=== PATIENT | female | born 1995 | race Caucasian/White ===

== ENCOUNTER 2025-07-13 02:21 | Inpatient (IN) | payer OTHER, SELFPAY ==
[2025-07-13] VITALS (20 sets, daily range): BP systolic 95–147; BP diastolic 58–100; PULSE 51–95; RESP 13–16; TEMP 36.4–36.8; O2SAT 95–100; BMI 31.4
--- NOTE | 2025-07-13 02:31 | P.OBHP_ITS ---
OB - H&P: HPI Labor/Induction History of Present Illness Time Seen by Provider: 02:31 Date Seen: 07/13/25 Chief Complaint: The patient is a 29 year old 3 para 2 at 35.6 weeks gestation who presents grossly ruptured. Chief complaint: Maternity : 3 Para: 2 Narrative: Natalya Cao is a 29 year old female who has breech di-di twins who presents with gross rupture of membranes. She is visiting family in [place], follows at [facility]. I do not have any records. Per patient's report, patient has twin di-di breech boys, bicornuate uterus. Has had 2 prior c-sections. She grossly ruptured at 1240. Has been felicia off and on for weeks. Things have been more painful since rupture of membranes. She reports she has had uncomplicated other than twin . 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 [place]ame [place] care after finding out about twins. Had some care in [place], most recent care at [facility]. She has planned for Friday at [facility]. We have requested records be faxed [facility]. She reports she is healthy. Only meds in this are vitamin and asa. She has no allergies. She has had 2 c-sections, no other abdominal surgeries. Review of Systems Status of ROS: Reports: 10 or more systems reviewed and unremarkable except as noted in History and below Meds Home Medications and Allergies Home Medications ?Medication ?Instructions ?Recorded ?Confirmed ?Type aspirin 81 mg tablet 81 mg PO DAILY 07/13/2506/21 History vit no.95-ferrous 1 tab PO DAILY 07/13/25 History fumarate 28 mg-folic acid 800 mcg tablet () Allergies Allergy/AdvReac Type Severity Reaction Status Date / Time No Known Drug Allergies Allergy Verified 07/13/25 02:06 OB - H&P: Exam Constitutional: Constitutional: no acute distress Routine HEENT Exam: Head: Present atraumatic and normal inspection Routine Neck Exam: Neck: Present full ROM Routine Respiratory Exam: Respiratory: Present CTA bilaterally Routine Cardiovascular Exam: Cardiovascular: RRR, S1 and S2 Detailed Abdominal Exam: Bowel sounds: hypoactive Detailed Labor and Delivery Exam: Patient Gravid: yes Fetus A: heart rate baseline: 120 monitor accelerations: 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 variability: Moderate (11-25) Fetus B: heart rate baseline: 130 monitor accelerations: Present monitor decelerations: None MCC variability: Moderate (11-25) Routine Extremities Exam: Extremities: Absent pedal edema or tenderness Routine Skin Exam: Present intact Routine Neurological Exam: Present alert and oriented X3 Routine Psychiatric Exam: Present normal affect OB - Problem Based A/P Additional Plan (1) Twin dichorionic diamniotic placenta: Status: Acute (2) Rupture of membranes with clear amniotic fluid: Status: Acute (3) Bicornuate uterus: Status: Acute (4) History of : Status: Acute Plan - I have consulted Dr. Baig with [facility] for management. - I have consulted [facility] for care for peds, I will also plan to attend. But given 35 weeks +breech +no records, appreciate her coming in for care as well. - will place IV, ready team for delivery.
[2025-07-13 02:34] LABS: Amnisure Rom* POSITIVE
[2025-07-13] MEDS: LACTATED RINGERS 1000 ML 1,000 ML 1200 ML IV (02:40)
[2025-07-13] MEDS: AZITHROMYCIN 500 MG in 0.9 % SODIUM CHLORIDE 250 ml 250 ML 255 MG IVPB (02:43)
[2025-07-13 03:00] LABS: Hematocrit* 39.7 % (33.0-51.0); Hemoglobin* 13.8 gm/dL (12.0-16.0); Immature Granulocytes Pct Auto 1.5 %; Mean Corpuscular HGB Conc 35 gm/dL (32-36); Mean Corpuscular Hemoglobin 31 pg (26-34); Mean Corpuscular Volume 89 fL (80-100); RDW Coefficient of Variation % 16.0 % (11.5-15.5); Red Blood Count* 4.45 m/uL (4.00-5.20); White Blood Count* 11.30 K/uL (4.50-11.00)
[2025-07-13 03:05] LABS: Immature Granulocytes Abs Auto 0.20 K/uL (0.00-0.30); Lymphocytes Absolute Auto 1.10 K/uL (0.90-2.90)
[2025-07-13 03:06] LABS: Slide Review Reflex No
[2025-07-13] MEDS: LACTATED RINGERS 1000 ML 1,000 ML 125 ML IV (05:42)
--- NOTE | 2025-07-13 06:13 | SUR.OPER ---
per surgeon labeling placenta as placentas
--- NOTE | 2025-07-13 06:30 | P.OBPRC_ITS ---
Procedure Date of procedure: 07/13/25 Pre-op diagnosis: PPROM at 35 weeks, 6 days gestation Dichorionic, diamniotic twin ; breech presentation for both twins Two previous sections Bicornuate uterus Post-op diagnosis: same Procedure Done: Global Will [facility] bill your pro fee for this procedure?: Yes Blood Loss Measurement Type: QBL (3114) Bakri Used: No IV fluids (mL): 1,600 Urine Output (mL): 300 Surgeon: Alexus Baig MD Findings: 1. Male infants, both in breech presentation. 2. Baby A: Apgars 8 & 9, weight 2340 g. 3. Baby B: Apgars 7 & 9, weight 2815 g. 4. Peritoneum obliterated between anterior abdominal wall and uterus up to the level of the fundus. Thus, anterior leaf of broad ligament was nonexistent bilaterally. Left round ligament partially disrupted by entry into peritoneal cavity, and posterior leaf of left broad ligament disrupted between the left tube and ovary. 5. Normal appearance of bilateral tubes and ovaries. Procedure Name: Repeat delivery with lysis of adhesions Procedure Description: Consent: We discussed the indications for in her case. We discussed the risks of , including bleeding/hemorrhage, infection, damage to internal organs including bladder, risk of scarring, risk of placenta accreta in future pregnancies, and thromboembolism. We discussed likely postoperative restrictions and precautions. Consent form was reviewed with and signed by patient. PROCEDURE IN DETAIL: Patient was taken to the operating room with IV running. She received cefazolin and azithromycin in preoperative prophylaxis. Spinal anesthesia was administered. Vogel catheter was inserted. She was prepped and draped in the usual sterile fashion. Anesthesia was tested and found to be adequate. A low-transverse skin incision was made with a scalpel overlying the previous Pfannenstiel scar. This was carried through to the underlying layer of fascia with the scalpel. The subcutaneous fat was dissected off the underlying fascia with Bovie. The fascia was nicked in the midline with a scalpel, and this incision was extended laterally with scissors. The rectus fascia was dissected off the underlying rectus muscles sharply in superior and inferior directions. The rectus muscles were in the midline. The denuded uterine musculature was encountered, but I was unable initially to gain entry into the peritoneal cavity. I was slowly able to create an opening in the peritoneal adhesions 1st with blunt dissection, and then by passing my left hand a small opening and bringing the peritoneum down words towards the incision, and then lysing this peritoneum with Bovie. Ultimately this was successful in gaining access to the fundus. Joe O retractor was inserted and tightened down, providing excellent visualization of the lower uterine segment. The bladder reflection was found to be well below the planned site for hysterotomy. Low-transverse uterine incision was made with a scalpel. Incision was widened bluntly. The bag of water of twin A was ruptured in the process. The breech of twin A was grasped through the hysterotomy, sacrum was turned anterior, and gentle traction was applied at the hips, easily delivering the remainder of the body and the 's head while maintaining a flexed position. Cord was clamped and cut after approximately 30 seconds. was handed off to attending pediatrics providers. The bag of water of twin B was then ruptured. The breech of twin B was grasped through the hysterotomy, sacrum was turned anterior, and gentle traction was applied at the hips, easily delivering the remainder of the body and arms. Fundal pressure was required for delivery of the head, whilst maintaining the head in a neutral position. Cord was clamped and cut after approximately 30 seconds. was handed off to attending pediatrics providers. The placenta was delivered with gentle traction on the cord. The uterus was exteriorized. The endometrial cavity was manually explored, revealing a muscular septum running down the superior 1/3 to 1/2 of the endometrial cavity. The right side of the uterus was more distended. There was abundant bleeding of a branch of the right uterine artery at the angle of the hysterotomy. This was immediately addressed with multiple egnuyr-if-atolq sutures. Thereafter, the hysterotomy was reapproximated with 0 Vicryl in a running, locked fashion. Several cuwtis-xx-kaenk sutures were required at various sites along the hysterotomy to obtain hemostasis. The adnexa were examined and noted to be normal in appearance. There was bleeding from the posterior fundal uterus through the rent in the posterior leaf of the left broad ligament. This was addressed with several sutures of 2-O Vicryl. Maricarmen was applied to the base. The tear in the left round ligament was addressed with several sutures, some interrupted and some running, of 2-0 Vicryl. The entire anterior surface of the uterus was without peritoneum and was raw and bleeding at several sites. These were variably addressed with Bovie and chromic suture. The uterus was returned to the abdomen. All raw and previously bleeding areas were examined multiple times. Additional yxamle-mu-xcnue sutures were used at various sites. Maricarmen was applied adjacent to the partially disrupted left round ligament. The cul-de-sac and gutters were cleansed with dampened laparotomy sponge, removing any further clots and debris. The Joe O retractor was removed. The hysterotomy was reexamined and additional rhwvud-bw-qwgav sutures were used for hemostasis. The rectus muscles were examined and found to be hemostatic. The fascia was reapproximated with 0 Vicryl in a running fashion. Subcutaneous fat was irrigated and Bovie used on oozing vessels. The subcutaneous fat was reapproximated with 2 0 plain gut suture in an interrupted fashion. The skin was closed with a subcuticular stitch of 4-0 Monocryl. Surgical glue was applied above this. Patient tolerated procedure well was taken to recovery area in stable condition. Complications: Partial disruption of left broad ligament Intrapartum hemorrhage 1344 mL, partially from bleeding of right uterine artery and partially from that of left round ligament Pathology: specimen obtained, sent to pathology (Placentas) Surgery Debrief Performed: Yes Surgery Debrief Comment: Postoperative debrief was verbalized with OR staff, including a verification of pathology specimens to be sent as described above. Condition: stable Disposition: floor Globe total score - 1 minute: 8 total score - 5 minute: 9
--- NOTE | 2025-07-13 07:03 | W.PM.NB ---
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 Images saved: Yes Medications given in 5ml increments after negative aspiration: Marcaine %: 0.25 mL: 30 Needle gauge: 20 and Exparel mL: 10 Needle gauge: 20 Patient tolerated procedure well: Yes Block Charges Block Charge (with Pro Fee): TAP Bilateral Use of Ultrasound Machine for Block: Yes- US Guidance/pain block
--- NOTE | 2025-07-13 07:05 | P.ANES_ITS ---
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
--- NOTE | 2025-07-13 07:05 | W.ANESCHARGE ---
Anesthesia Charges Start Date/Time Anesthesia Start Date: 07/13/25 Anesthesia Start Time: 03:49 Stop Date/Time Anesthesia Stop Date: 07/13/25 Anesthesia Stop Time: 06:40 Summary Emergency: MAXILLOFACIAL PROSTHODONTIST Coding CPT Codes CPT Codes: ANESTH CS DELIVERY - 95802 ([id number]) P2 - PATIENT W/MILD SYST DISEASE, QZ - MAXILLOFACIAL PROSTHODONTIST SVC W/O SPACE SCHEDULER BY Additional Codes: Summary - Emergency: MAXILLOFACIAL PROSTHODONTIST ([id number])
[2025-07-13] MEDS: ACETAMINOPHEN 500 MG TABLET 1000 MG PO ×3 (07:47→20:36)
[2025-07-13] MEDS: FERROUS SULFATE 325 MG TABLET PO (10:00)
[2025-07-13 11:21] LABS: Hematocrit* 33.8 % (33.0-51.0); Hemoglobin* 11.3 gm/dL (12.0-16.0); Immature Granulocytes Pct Auto 1.5 %; Mean Corpuscular HGB Conc 33 gm/dL (32-36); Mean Corpuscular Hemoglobin 30 pg (26-34); Mean Corpuscular Volume 91 fL (80-100); RDW Coefficient of Variation % 16.3 % (11.5-15.5); Red Blood Count* 3.72 m/uL (4.00-5.20); White Blood Count* 19.08 K/uL (4.50-11.00)
[2025-07-13 11:31] LABS: Immature Granulocytes Abs Auto 0.30 K/uL (0.00-0.30); Lymphocytes Absolute Auto 1.00 K/uL (0.90-2.90); Slide Review Reflex No
[2025-07-14 00:20] VITALS: BP 96/62; PULSE 85; RESP 16; TEMP 36.7; O2SAT 95
[2025-07-14 06:21] VITALS: BP 97/60; PULSE 86; RESP 16; TEMP 36.7; O2SAT 95
[2025-07-14] MEDS: SIMETHICONE 80 MG TAB.CHEW PO ×3 (06:25→20:04)
[2025-07-14 07:12] LABS: Hemoglobin* 9.0 gm/dL (12.0-16.0)
[2025-07-14] MEDS: ACETAMINOPHEN 500 MG TABLET 1000 MG PO ×2 (09:22→16:11)
[2025-07-14] MEDS: DOCUSATE SODIUM 100 MG CAPSULE PO (09:23)
[2025-07-14 09:26] VITALS: BP 105/67; PULSE 79; RESP 16; TEMP 36.6; O2SAT 95
--- NOTE | 2025-07-14 09:41 | PM.OBPNVD1 ---
OB - PN:Subj Subjective Time Seen by Provider: 09:42 Date Seen: 07/14/25 Narrative: Natalya is a 29yo seen on POD1 from repeat C/S. was complicated by dichorionic diamniotic twin gestation, bicornuate uterus, prior C/S x2. Her surgery was complicated by a hemorrhage (1,344mL), secondary to mild atony and primarily tissue trauma due to significant intra-abdominal adhesions. Postoperatively, she has been feeling well. Patient notes her pain is well controlled on ibuprofen, Tylenol and oxycodone (one 5 mg dose overnight). She is tolerating p.o. intake without nausea or vomiting. Voiding spontaneously, robust urine output noted - 2150cc documented since surgery and now no longer recording strict I/Os. Patient has been up to ambulate several times - denies dizziness, lightheadedness, chest pain or dyspnea. Lochia is described as moderate, no concerns. Passing flatus, no bowel movement. She is breast feeding her babies, Carrington and Jet. They were able to discontinue IV support this morning. The family is bonding appropriately. OB - PN: Obj Exam Physical Exam: Vital signs: Temp Pulse Resp BP Pulse Ox O2 Del Method 98 F 79 16 105/67 95 Room Air 07/14/25 09:26 07/14/25 09:26 07/14/25 09:26 07/14/25 09:26 07/14/25 09:26 07/14/25 09:26 Narrative: General: Alert and oriented, in no acute distress Psych: Appropriate mood and affect Abdomen: Soft, moderate distension that is easily compressible and sounds like gaseous tympany on percussion. Bowel sounds present. No upper abdominal tenderness, there is moderate tenderness to palpation at the fundus and bilateral lower quadrants consistent with postoperative state. No rebound or guarding. Fundus palpates at umbilicus, firm. Incision is covered, clean/dry. Patient is aware this can be removed at any time. No surrounding erythema or ecchymosis. Extremities: No significant edema. Calves are without erythema or tenderness. A.m. hemoglobin is 9.0 from her 4 hour postop value of 11.3. OB - PN: Obj Data Labs Labs: Laboratory Results - last 24 hr 07/13/25 07/14/25 11:13 06:45 WBC 19.08 H RBC 3.72 L Hgb 11.3 L 9.0 L Hct 33.8 MCV 91 MCH 30 MCHC 33 RDW Coeff of Christine 16.3 H Plt Count 140 Neut % (Auto) 84.6 H Lymph % (Auto) 5.4 L [place] % (Auto) 8.4 Eos % (Auto) 0.0 Baso % (Auto) 0.1 Neut # (Auto) 16.10 H Lymph # (Auto) 1.00 [place] # (Auto) 1.60 H Eos # (Auto) 0.00 Baso # (Auto) 0.00 Abs Immat Gran (auto) 0.30 Imm/Tot Granulo (auto) 1.5 OB - PN: A/P Delivery Assessment and Plan (1) Twin dichorionic diamniotic placenta: Status: Acute (2) Rupture of membranes with clear amniotic fluid: Status: Acute (3) Bicornuate uterus: Status: Acute (4) History of : Status: Acute Plan Natalya is a 29yo seen on POD1 from repeat C/S. was complicated by dichorionic diamniotic twin gestation, bicornuate uterus, prior C/S x2. Her surgery was complicated by a hemorrhage (1,344mL), secondary to mild atony and primarily tissue trauma due to significant intra-abdominal adhesions. Natalya is meeting all appropriate postoperative milestones. She does have new acute blood loss anemia, hemoglobin of 9.0 from 11.3 4 hours postop. Vital signs within normal limits, adequate urine output, pain is well controlled, overall benign abdominal exam. She is ambulating without dizziness/lightheadedness, no chest pain or dyspnea. Continue oral iron. Patient is successfully her infants, they are doing well and were weaned off IV support this morning. No acute mood concerns. The family is planning to discharge home on postop day 3. They are open to their care either here or at [facility] in [place]. Discussed contraception, where would recommend she utilize something reliable for at least 18 months after delivery due to her significant intra-abdominal adhesions. She notes they have utilize natural family planning in the past, will likely do so again.
[2025-07-14 15:57] VITALS: BP 97/63; PULSE 102; RESP 12; TEMP 36.8; O2SAT 96
[2025-07-14 19:59] VITALS: BP 103/68; PULSE 100; RESP 16; TEMP 36.7; O2SAT 97
[2025-07-15] MEDS: ACETAMINOPHEN 500 MG TABLET 1000 MG PO ×3 (02:17→17:54)
[2025-07-15 05:00] VITALS: BP 100/66; PULSE 72; RESP 16; O2SAT 97
--- NOTE | 2025-07-15 08:06 | P.DS_ITS ---
DS: Providers Provider Date Seen: 07/15/25 Date of admission: 07/13/25 02:21 Primary care physician: Not a Local Provider Admitting Clinician: Nataliia Torres MD Consults: 07/13/25 02:33 Consult to Physician [CONS] Routine Comment: Consulting Provider: Alexus Baig Has provider been notified: Yes Attending Physician on discharge: Juanis Mayfield CNM DS: Diagnosis Discharge Diagnosis (1) care and examination immediately after delivery: Status: Acute (2) History of : Status: Acute (3) Lactating mother: Status: Acute Exam Narrative: Exam Narrative: GENERAL APPEARANCE:? normal affect, alert, no distress MOOD:? appropriate CHEST:? clear to auscultation HEART:? regular rate and rhythm ABDOMEN:? soft, non-tender the uterine fundus is At Umbilicus, Midline and is appropriate for the stage of recovery. EXTREMITIES:? normal and no edema INCISION: Healing well, no surrounding erythema, abnormal induration or discharge Const: Vital Signs, click to edit/add: Vital Signs - 24 hr 07/14/25 09:26 07/14/25 15:57 07/14/25 19:59 Temperature 98 F 98.2 F 98.1 F Pulse Rate [Pulse Oximeter] 79 102 H 100 Respiratory Rate 16 12 16 Blood Pressure [Ri ght Arm] 105/67 97/63 103/68 Pulse Oximetry 95 96 97 Oxygen Delivery Me thod Room Air Room Air Room Air 07/15/25 05:00 Temperature Pulse Rate [Pulse Oximeter] 72 Respiratory Rate 16 Blood Pressure [Ri ght Arm] 100/66 Pulse Oximetry 97 Oxygen Delivery Me thod Room Air Documenting provider has reviewed patient's vital signs: yes OB - DS: Summary Hospital Course Hospital Course: Natalya is a 29 y.o. G 3 P 3 who was admitted to [facility] followed by repeat c/s of twins. ?She had a section that was uncomplicated. The patient feels well. ?The pain is well controlled with current medications. ?She has no new complaints. ?She is breast feeding and reports things are going well, however twins were and they are down in weight. the patient has done well.? Vitals have been stable.? She has remained afebrile.? Has a good appetite, is tolerating a general diet. ?She is voiding without difficulty.? She is passing gas and has [not] had a bowel movement.? She is ambulating and denies any dizziness.? Has small amount of rubra lochia. Problems: Anemia Discharge home. Babies are down about 10% since weight and may be recommended to stay again tonight. If they do, she may elect to stay and d/c home tomorrow. Follow up in 2 weeks and 6 weeks.? , may see if needed? Hgb 9.0. Iron supplement ordered orally every other day?? For pain control of perineum, breast and pelvic pain, take 600 mg Ibuprofen every 6 hours as needed by mouth or 1000 mg acetaminophen (Tylenol) every 6 hours by mouth as needed. You can alternate these so you are taking something every 3 hours as needed. A heating pad can also be used for your abdomen or breasts. You may also take docusate sodium up to twice daily to soften your stools and help to prevent constipation. You may wean off of it when your stools return to normal.? Peripartum Data delivery method: Repeat Section Procedures: Procedures Operation Date: 07/13/25 03:00 Actual Procedure Side Surgeon p Repeat Section Alexus Baig MD complications: none Infant Gender: Male [place] A Infant Gender: Male Infant Discharge Plan: Home (May be recommended to stay again tonight due to weight concerns) [place] B Infant Gender: Male Discharge Plan: Home (May be recommended to stay again tonight due to weight concerns) Status at Discharge Functional status at discharge: independent ambulation Overall status at discharge: patient is progressing back to baseline Time Spent with Patient Time attestation: Total time spent providing and/or coordinating discharge services: Time spent: Less than 30 minutes Discharge Plan Discharge Disposition: Home, Self-Care Date of Admission: 07/13/25 02:21 Attending Provider on Discharge: Juanis Mayfield Consulting Providers: Alexus Baig Primary Care Provider: Provider,Not a Local Condition: Stable Anticipated Discharge Date/Time: 07/15/25 12:00 Discharge Medications: New acetaminophen 500 mg Tablet 1,000 mg PO Q6H PRN (Reason: Pain) Qty: 0 0RF ferrous sulfate 325 mg (65 mg iron) Tablet 325 mg PO Q48H Qty: 60 0RF docusate sodium 100 mg Capsule 100 mg PO DAILY Qty: 60 0RF ibuprofen 600 mg Tablet 600 mg PO Q6H PRN (Reason: Pain) Qty: 60 0RF oxycodone 5 mg Tablet 5 - 10 mg PO Q4H PRN (Reason: Pain) Qty: 15 0RF Continued PNV no.95-ferrous fumarate-FA [] 28 mg iron- 800 mcg tablet 1 tab PO DAILY Discontinued aspirin 81 mg tablet 81 mg PO DAILY Discharge Orders: Discharge Order (Routine); Ordered 07/15/25 Ordered By: Juanis Mayfield Patient Education: Bupivacaine Liposome (By injection), OB Over the Counter Medication Information, OB /Breast Feeding Additional Instructions: Discharge instructions were reviewed with the patient including signs and symptoms of infection and home going medications Lifting Restrictions: 20 pounds for 6 weeks Do not submerge incision under water X 2 weeks? Nothing vaginally for 6 weeks: no tampons or intercourse Do not drive while taking narcotic pain medication(s) Off Work or School for 8 weeks 2-week post-operative visit with OB: incision check, with provider who performed section is preferred 6-week visit for an annual exam with your Family Medicine Provider at [facility]. consultation services are available to all mothers and babies for the first year after delivery.? To make an appointment, please call [phone]. Activity Level: Activity as Tolerated and Light activity Discharge Diet: Regular Follow Up Appointments: [facility] [Provider Group] Forms: MyHealth Info Instructions
[2025-07-15 08:18] VITALS: BP 106/72; PULSE 93; RESP 20; TEMP 36.7; O2SAT 96
[2025-07-15] MEDS: FERROUS SULFATE 325 MG TABLET PO (08:34)
[2025-07-15] MEDS: IBUPROFEN 600 MG TABLET PO ×3 (08:34→20:53)
[2025-07-15] MEDS: DOCUSATE SODIUM 100 MG CAPSULE PO (08:34)
[2025-07-15 16:39] VITALS: BP 103/69; PULSE 93; RESP 16; TEMP 36.6; O2SAT 96
[2025-07-15 20:56] VITALS: BP 105/70; PULSE 108; RESP 18; TEMP 36.6; O2SAT 96
[2025-07-16] MEDS: ACETAMINOPHEN 500 MG TABLET 1000 MG PO ×2 (00:41→06:24)
[2025-07-16 03:13] VITALS: BP 99/68; PULSE 73; RESP 18; TEMP 36.7; O2SAT 95
[2025-07-16] MEDS: IBUPROFEN 600 MG TABLET PO ×2 (03:14→09:30)
[2025-07-16] MEDS: DOCUSATE SODIUM 100 MG CAPSULE PO (09:30)
[2025-07-16 09:31] VITALS: BP 108/74; PULSE 93; RESP 16; TEMP 36.4; O2SAT 96
== END 2025-07-16 13:25 | disposition home or self-care (01) | DRG 786 ==
LOC: OB OUT 02:21 → OB 03:21
PROVIDERS: Obstetrics & Gynecology; Admitting Provider Family Medicine; Visit Provider Obstetrics & Gynecology
PROC: 10D00Z1 Extraction of Products of Conception, Low, Open Approach (ICD-10-PCS; CPT 59514; principal; 2025-07-13 03:00)
DX: O30.043 Twin pregnancy, dichorionic/diamniotic, third trimester (principal); O60.14X1 Preterm labor third trimester with preterm delivery third trimester, fetus 1; O60.14X2 Preterm labor third trimester with preterm delivery third trimester, fetus 2; O72.1 Other immediate postpartum hemorrhage; D62 Acute posthemorrhagic anemia; O42.913 Preterm premature rupture of membranes, unspecified as to length of time between rupture and onset of labor, third trimester; O34.211 Maternal care for low transverse scar from previous cesarean delivery; O34.03 Maternal care for unspecified congenital malformation of uterus, third trimester; Q51.3 Bicornate uterus; G89.18 Other acute postprocedural pain; O99.62 Diseases of the digestive system complicating childbirth; K66.0 Peritoneal adhesions (postprocedural) (postinfection); O90.81 Anemia of the puerperium; Z3A.35 35 weeks gestation of pregnancy; Z37.2 Twins, both liveborn
CPT/HCPCS: 01961; 36415; 64488; 76942; 84112; 85018; 85025; 86780; 86850; 86900; 86901; 86922; 99140; A4314; A9270; J0456; J0665; J0666; J1100; J1885; J2371; J2405; J2590; J2704; J3010; J7050; J7120